=== PATIENT | female | born 1960 | race Caucasian/White ===

== ENCOUNTER 2017-05-04 20:07 | Emergency (ER) | payer BC ==
[~2017-05-04] VITALS: Ht 165.1 cm; Wt 67.6 kg
[2017-05-04 20:40] VITALS: BP_SYST 127
[2017-05-04 21:01] LABS: BILIRUBIN,URINE NEGATIVE (NEGATIVE); CLARITY/URINE CLEAR (CLEAR); COLOR,URINE YELLOW (YELLOW); GLUCOSE,URINE NEGATIVE (NEGATIVE); KETONES,URINE NEGATIVE (NEGATIVE); LEUKOCYTE ESTERASE ,URINE NEGATIVE (NEGATIVE); NITRITE, URINE NEGATIVE (NEGATIVE); PH,URINE 6.5 (5.0-8.0); PROTEIN URINE NEGATIVE (NEGATIVE); UROBILINOGEN,URINE 0.2 (0.2-1.0)
[2017-05-04 21:03] LABS: BLOOD, URINE TRACE (NEGATIVE)
[2017-05-04] MEDS ORDERED: NACL 0.9% 1,000 ML IV ONE (21:26)
[2017-05-04 21:30] LABS: BACTERIA,URINE FEW /HPF (None Seen); CALCIUM OXALATE CRYSTALS,UR 3+ /HPF (None Seen); WBC,URINE 0-3 /HPF (0-3)
[2017-05-04] MEDS ORDERED: KETOROLAC TROMETHAMINE 30 MG VIAL IVP ONE (21:30)
[2017-05-04 22:41] LABS: BASOPHILS % (AUTO) 0.3 % (0.0-2.0); EOSINOPHILS % (AUTO) 1.1 % (0.0-4.0); HEMOGLOBIN 12.7 g/dL (12.0-16.0); LYMPHOCYTES # (AUTO) 1.2 K/uL (1.0-5.5); LYMPHOCYTES % (AUTO) 26.7 % (20.5-51.5); MEAN CORPUSCULAR HEMOGLOBIN 30 pg (27-31); MEAN CORPUSCULAR HGB CONC 33 % (32-36); MEAN CORPUSCULAR VOLUME 91 fL (79.0-98.0); MONOCYTES # (AUTO) 0.3 K/uL (0.0-1.0); MONOCYTES % (AUTO) 6.3 % (1.7-9.3); NEUTROPHILS # (AUTO) 2.9 K/uL (1.8-7.7); NEUTROPHILS % (AUTO) 65.6 % (40.0-70.0); PLATELET COUNT (AUTO) 261 K/uL (130-430); RED BLOOD CELL COUNT(AUTO) 4.28 MIL/uL (4.2-6.2); RED CELL DISTRIBUTION WIDTH 13.2 % (9.0-15.0); WHITE BLOOD COUNT (AUTO) 4.4 K/uL (4.8-10.8)
[2017-05-04 22:45] LABS: CALCIUM 8.2 mg/dL (8.4-11.0)
[2017-05-04] MEDS ORDERED: MORPHINE 4 MG/ML INJ. SYRINGE IVP ONE (22:45)
[2017-05-04 22:46] LABS: CREATININE 0.4 mg/dL (0.55-1.30)
[2017-05-04 22:50] LABS: ALBUMIN 3.6 g/dL (3.4-4.8); TOTAL BILIRUBIN 0.3 mg/dL (0.0-1.0)
[2017-05-04 23:22] VITALS: BP_SYST 129
== END 2017-05-04 23:02 | disposition home or self-care (01) ==
LOC: SED 20:07
DX: R10.32 Left lower quadrant pain (principal); R35.0 Frequency of micturition; Z90.49 Acquired absence of other specified parts of digestive tract; Z98.84 Bariatric surgery status
CPT/HCPCS: 36415; 74176; 80053; 81000; 83690; 85025; 96361; 96374; 96375; 99285; J1885; J2270; J7030

== ENCOUNTER 2017-05-30 16:54 | Emergency (ER) | payer BC ==
[~2017-05-30] VITALS: Ht 165.1 cm; Wt 67.1 kg
[2017-05-30 17:01] VITALS: BP_SYST 115
--- NOTE | 2017-05-30 17:04 | NUR ---
Patient triaged and placed in waiting room. VSS and patient appears in no acute distress at this time. Accompanied by self, awaiting available bed, and MD notified of need for MSE.
--- NOTE | 2017-05-30 17:51 | NUR ---
Patient to ER Hallway [facility] to [facility] for evaluation. Side rails up. Report given to LUCIANO Regalado.
--- NOTE | 2017-05-30 17:55 | NUR ---
Pt brought by self , A&Ox4, pt c/o R wrist pain 01/26, pt fell this morning on toy landing on right wrist and right back .no deformities noted,skin pink and warm, cap refill <3.
[2017-05-30] MEDS ORDERED: HYDROcodone/ACETAMIN 7.5-325 MG TAB PO ONE (18:00)
--- NOTE | 2017-05-30 18:00 | NUR ---
Harleen Joel [employer] G[employer]MENT ASSEMBLER at bedside examining patient
[2017-05-30 18:42] VITALS: BP_SYST 115
--- NOTE | 2017-05-30 18:42 | NUR ---
Patient given written and verbal discharge instructions and verbalizes understanding. ER MD discussed with patient the results and treatment provided. Patient in stable condition. ID arm band removed. Rx of Tramadol, Mobic given. Patient educated on pain management and to follow up with PMD. Pain Scale 3/10 tolerable for pt. Opportunity for questions provided and answered.
== END 2017-05-30 18:42 | disposition home or self-care (01) ==
LOC: SED 16:54
DX: S63.501A Unspecified sprain of right wrist, initial encounter (principal); S39.012A Strain of muscle, fascia and tendon of lower back, initial encounter; Z90.49 Acquired absence of other specified parts of digestive tract; W18.09XA Striking against other object with subsequent fall, initial encounter; Y93.89 Activity, other specified; Y92.89 Other specified places as the place of occurrence of the external cause; Y99.8 Other external cause status
CPT/HCPCS: 99284

== ENCOUNTER 2017-06-12 18:45 | Emergency (ER) | payer BC ==
[~2017-06-12] VITALS: Ht 165.1 cm; Wt 67.1 kg
[2017-06-12 18:55] VITALS: BP_SYST 128
--- NOTE | 2017-06-12 21:00 | NUR ---
Placed in room 07 . Placed on ekg monitor, blood pressure machine and pulse oximeter. To gown for exam. Side rails up. Report given to RN.
--- NOTE | 2017-06-12 21:10 | NUR ---
Patient AAO x4, sitting in bed, c/o right upper quadrant abd pain shooting 8/10 x 2 days, patient not tachycardic, afebrile, and able to speak in full sentences without stopping. No acute distress noted. Will continue to monitor.
--- NOTE | 2017-06-12 21:15 | NUR ---
ER at bedside examining patient.
[2017-06-12] MEDS ORDERED: MORPHINE 2 MG/ML INJ. SYRINGE IVP ONE (21:30)
--- NOTE | 2017-06-12 21:36 | NUR ---
# 18 gauge angiocath placed to R AC. Use of asceptic technique. Opsite placed over site. Blood return noted. Two patient identifiers used. Blood for lab drawn from site. Flushed with 10 cc of normal saline. No evidence of infiltration noted. Patient tolerated well.
--- NOTE | 2017-06-12 21:40 | NUR ---
Patient to CT via wheelchair.
[2017-06-12 21:53] LABS: BASOPHILS % (AUTO) 0.2 % (0.0-2.0); EOSINOPHILS % (AUTO) 0.7 % (0.0-4.0); HEMATOCRIT 39.2 % (36-48); HEMOGLOBIN 12.4 g/dL (12.0-16.0); LYMPHOCYTES # (AUTO) 1.2 K/uL (1.0-5.5); LYMPHOCYTES % (AUTO) 21.5 % (20.5-51.5); MEAN CORPUSCULAR HEMOGLOBIN 29 pg (27-31); MEAN CORPUSCULAR HGB CONC 32 % (32-36); MEAN CORPUSCULAR VOLUME 90 fL (79.0-98.0); MONOCYTES # (AUTO) 0.4 K/uL (0.0-1.0); MONOCYTES % (AUTO) 6.4 % (1.7-9.3); NEUTROPHILS # (AUTO) 4.2 K/uL (1.8-7.7); NEUTROPHILS % (AUTO) 71.2 % (40.0-70.0); PLATELET COUNT (AUTO) 301 K/uL (130-430); RED BLOOD CELL COUNT(AUTO) 4.34 MIL/uL (4.2-6.2); RED CELL DISTRIBUTION WIDTH 13.3 % (9.0-15.0); WHITE BLOOD COUNT (AUTO) 5.8 K/uL (4.8-10.8)
--- NOTE | 2017-06-12 22:00 | NUR ---
Patient returned from CT.
[2017-06-12 22:26] LABS: ANION GAP 7 (5-15); CALCIUM 8.8 mg/dL (8.4-11.0); CHLORIDE 107 mmol/L (98-107); CREATININE 0.43 mg/dL (0.55-1.30); GLUCOSE 99 mg/dL (70-99); POTASSIUM 3.9 mmol/L (3.5-5.1); SODIUM SERUM 142 mmol/L (136-145); UREA NITROGEN, BLOOD 12 mg/dL (8-21)
[2017-06-12 22:30] LABS: INR 0.9 (0.8-1.2); PROTHROMBIN TIME 9.3 SECS (9.5-12.5)
[2017-06-12 22:33] LABS: GFR AFRICAN AMERICAN 195 mL/min (>90)
[2017-06-12 22:34] LABS: ALANINE AMINOTRANSFERASE 14 U/L (12-78); ALBUMIN 3.5 g/dL (3.4-4.8); ASPARTATE AMINOTRANSFERASE 8 U/L (10-37); LIPASE 218 U/L (73-393); TOTAL BILIRUBIN 0.4 mg/dL (0.0-1.0)
--- NOTE | 2017-06-12 23:00 | NUR ---
Patient resting in bed, no acute distress noted. Vital signs stable.
[2017-06-12 23:25] VITALS: BP_SYST 114
--- NOTE | 2017-06-12 23:25 | NUR ---
Patient given written and verbal discharge instructions and verbalizes understanding. ER MD discussed with patient the results and treatment provided. Patient in stable condition. ID arm band removed. IV catheter removed intact and dressing applied, no active bleeding. Rx of ibuprofen and colace given. Patient educated on pain management and to follow up with PMD. Pain Scale 0/10 . Opportunity for questions provided and answered.
== END 2017-06-12 23:25 | disposition home or self-care (01) ==
LOC: SED 18:45
DX: R10.13 Epigastric pain (principal); R11.0 Nausea; R63.0 Anorexia; Z90.49 Acquired absence of other specified parts of digestive tract; Z98.84 Bariatric surgery status
CPT/HCPCS: 36415; 74176; 80053; 83690; 83880; 84484; 85025; 85610; 85730; 96365; 99285; J2270

== ENCOUNTER 2017-09-15 08:14 | Emergency (ER) | payer BC ==
[~2017-09-15] VITALS: Ht 165.1 cm; Wt 72.1 kg
[2017-09-15 08:14] VITALS: BP_SYST 126
[2017-09-15] MEDS ORDERED: ONDANSETRON 4 MG ODT TAB PO ONE (08:30)
[2017-09-15] MEDS ORDERED: IBUPROFEN 800 MG TABLET PO ONE (08:30)
[2017-09-15] MEDS ORDERED: HYDROcodone/ACETAMIN 10-325 MG TAB PO ONE (08:45)
[2017-09-15 08:51] LABS: BASOPHILS % (AUTO) 0.6 % (0.0-2.0); EOSINOPHILS # (AUTO) 0.1 K/uL (0.0-0.4); EOSINOPHILS % (AUTO) 1.8 % (0.0-4.0); HEMATOCRIT 36.4 % (36-48); HEMOGLOBIN 11.7 g/dL (12.0-16.0); LYMPHOCYTES # (AUTO) 1.1 K/uL (1.0-5.5); LYMPHOCYTES % (AUTO) 25.2 % (20.5-51.5); MEAN CORPUSCULAR HEMOGLOBIN 28 pg (27-31); MEAN CORPUSCULAR HGB CONC 32 % (32-36); MEAN CORPUSCULAR VOLUME 85 fL (79.0-98.0); MONOCYTES # (AUTO) 0.3 K/uL (0.0-1.0); MONOCYTES % (AUTO) 7.9 % (1.7-9.3); NEUTROPHILS # (AUTO) 2.8 K/uL (1.8-7.7); NEUTROPHILS % (AUTO) 64.5 % (40.0-70.0); PLATELET COUNT (AUTO) 280 K/uL (130-430); RED BLOOD CELL COUNT(AUTO) 4.26 MIL/uL (4.2-6.2); RED CELL DISTRIBUTION WIDTH 12.9 % (9.0-15.0); WHITE BLOOD COUNT (AUTO) 4.3 K/uL (4.8-10.8)
[2017-09-15 09:08] LABS: CALCIUM 8.8 mg/dL (8.4-11.0); CREATININE 0.44 mg/dL (0.55-1.30); POTASSIUM 3.5 mmol/L (3.5-5.1)
[2017-09-15 09:13] LABS: ALBUMIN 3.4 g/dL (3.4-4.8); PROTHROMBIN TIME 9.8 SECS (9.5-12.5); TOTAL BILIRUBIN 0.3 mg/dL (0.0-1.0)
[2017-09-15 09:15] LABS: BILIRUBIN,URINE NEGATIVE (NEGATIVE); CLARITY/URINE CLEAR (CLEAR); COLOR,URINE YELLOW (YELLOW); GLUCOSE,URINE NEGATIVE (NEGATIVE); KETONES,URINE NEGATIVE (NEGATIVE); LEUKOCYTE ESTERASE ,URINE NEGATIVE (NEGATIVE); NITRITE, URINE NEGATIVE (NEGATIVE); PH,URINE 6.5 (5.0-8.0); PROTEIN URINE NEGATIVE (NEGATIVE); UROBILINOGEN,URINE 0.2 (0.2-1.0)
[2017-09-15 09:36] LABS: BLOOD, URINE TRACE (NEGATIVE)
[2017-09-15 10:30] LABS: BACTERIA,URINE FEW /HPF (None Seen); MUCUS,URINE None Seen /LPF (None Seen); RBC,URINE 0-3 /HPF (0-3); WBC,URINE 0-3 /HPF (0-3)
[2017-09-15] MEDS ORDERED: MORPHINE SULFATE 10 MG/ML VIAL IM ONE (11:00)
[2017-09-15 11:25] VITALS: BP_SYST 122
== END 2017-09-15 11:25 | disposition home or self-care (01) ==
LOC: SED 08:14
DX: R10.13 Epigastric pain (principal); R11.0 Nausea; Z86.2 Personal history of diseases of the blood and blood-forming organs and certain disorders involving the immune mechanism
CPT/HCPCS: 36415; 74176; 80053; 81000; 82150; 83690; 84703; 85025; 85610; 85730; 96372; 99285; J2270; Q0162

== ENCOUNTER 2018-01-06 21:58 | Emergency (ER) | payer BC, OTHER ==
[~2018-01-06] VITALS: Ht 165.1 cm; Wt 73.5 kg
[2018-01-06 22:05] VITALS: BP_SYST 110
[2018-01-06] MEDS ORDERED: NACL 0.9% 1,000 ML IV ONE (22:14)
[2018-01-06] MEDS ORDERED: ONDANSETRON HCL 4 MG/2 ML VIAL IVP ONE (22:15)
[2018-01-06] MEDS ORDERED: MORPHINE 2 MG/ML INJ. SYRINGE IM ONE (22:15)
[2018-01-06] MEDS ORDERED: KETOROLAC TROMETHAMINE 30 MG VIAL IVP ONE (22:15)
[2018-01-06 22:26] LABS: BILIRUBIN,URINE 1+ (NEGATIVE); BLOOD, URINE NEGATIVE (NEGATIVE); CLARITY/URINE SL CLOUDY (CLEAR); COLOR,URINE YELLOW (YELLOW); GLUCOSE,URINE NEGATIVE (NEGATIVE); KETONES,URINE 1+ (NEGATIVE); LEUKOCYTE ESTERASE ,URINE TRACE (NEGATIVE); NITRITE, URINE NEGATIVE (NEGATIVE); PROTEIN URINE TRACE (NEGATIVE)
[2018-01-06 22:51] LABS: BASOPHILS % (AUTO) 0.6 % (0.0-2.0); EOSINOPHILS # (AUTO) 0.3 K/uL (0.0-0.4); EOSINOPHILS % (AUTO) 6.4 % (0.0-4.0); HEMATOCRIT 33.7 % (36-48); HEMOGLOBIN 10.6 g/dL (12.0-16.0); LYMPHOCYTES # (AUTO) 1.6 K/uL (1.0-5.5); LYMPHOCYTES % (AUTO) 37.3 % (20.5-51.5); MEAN CORPUSCULAR HEMOGLOBIN 26 pg (27-31); MEAN CORPUSCULAR HGB CONC 32 % (32-36); MEAN CORPUSCULAR VOLUME 82 fL (79.0-98.0); MONOCYTES # (AUTO) 0.5 K/uL (0.0-1.0); MONOCYTES % (AUTO) 12.5 % (1.7-9.3); NEUTROPHILS # (AUTO) 1.8 K/uL (1.8-7.7); NEUTROPHILS % (AUTO) 43.2 % (40.0-70.0); PLATELET COUNT (AUTO) 299 K/uL (130-430); RED BLOOD CELL COUNT(AUTO) 4.09 MIL/uL (4.2-6.2); RED CELL DISTRIBUTION WIDTH 16.5 % (9.0-15.0); WHITE BLOOD COUNT (AUTO) 4.2 K/uL (4.8-10.8)
[2018-01-06 22:57] LABS: BACTERIA,URINE FEW /HPF (None Seen); RBC,URINE 0-3 /HPF (0-3)
[2018-01-06 22:58] LABS: CALCIUM OXALATE CRYSTALS,UR 0-10 /HPF (None Seen)
[2018-01-06 23:23] LABS: CALCIUM 8.9 mg/dL (8.4-11.0); CREATININE 0.63 mg/dL (0.55-1.30); POTASSIUM 3.5 mmol/L (3.5-5.1)
[2018-01-06 23:27] LABS: ALBUMIN 3.5 g/dL (3.4-4.8); TOTAL BILIRUBIN 0.3 mg/dL (0.0-1.0)
[2018-01-06 23:35] VITALS: BP_SYST 116
== END 2018-01-06 23:35 | disposition home or self-care (01) ==
LOC: SED 21:58
DX: N20.0 Calculus of kidney (principal); N39.0 Urinary tract infection, site not specified; R19.7 Diarrhea, unspecified; R11.10 Vomiting, unspecified; Z86.2 Personal history of diseases of the blood and blood-forming organs and certain disorders involving the immune mechanism; Z90.49 Acquired absence of other specified parts of digestive tract; Z98.84 Bariatric surgery status
CPT/HCPCS: 36415; 74176; 80053; 81000; 83690; 85025; 87086; 96361; 96374; 96375; 99285; J1885; J2270; J2405; J7030

== ENCOUNTER 2018-11-19 18:24 | Emergency (ER) | payer OTHER ==
[~2018-11-19] VITALS: Ht 165.1 cm; Wt 72.1 kg
[2018-11-19 18:39] VITALS: BP_SYST 119
--- NOTE | 2018-11-19 18:43 | NUR ---
Patient triaged and placed in waiting room. VSS and patient appears in no acute distress at this time. Accompanied by self, awaiting available bed, and MD notified of need for MSE.
--- NOTE | 2018-11-19 19:32 | NUR ---
1931 - Patient to ER bed 3 to [facility] for evaluation. Side rails up. Report given to LUCIANO Joyce.
--- NOTE | 2018-11-19 19:32 | NUR ---
Note mira in EDM - 11/19/18 at 1932 by [email or web address] Patient to ER bed 3 to [facility] for evaluation. Side rails up. Report given to LUCIANO Joyce
--- NOTE | 2018-11-19 19:42 | NUR ---
Pt complains of right side abdominal pain for the past two weeks, on and off. Pt states she feel nauseous but has not vomited. The other day patient states she had a fever of 103.5 and would fluctuate from 101 to 103.5, the next day she was afebrile. Pt denies diarrhea, constipation, burning/pain upon urination. No other injuries/complaints per patient or noted.
--- NOTE | 2018-11-19 20:09 | NUR ---
ER Dr. Stewart at bedside examining patient.
[2018-11-19] MEDS ORDERED: NACL 0.9% 1,000 ML IV ONE (20:12)
[2018-11-19] MEDS ORDERED: ONDANSETRON HCL 4 MG/2 ML VIAL IVP ONE (20:15)
[2018-11-19] MEDS ORDERED: MORPHINE 4 MG/ML INJ. SYRINGE IVP ONE (20:15)
[2018-11-19] MEDS ORDERED: DIPHENHYDRAMINE INJ 50 MG/ML VIAL IVP ONE (20:15)
--- NOTE | 2018-11-19 20:41 | NUR ---
medications were given, pt tolerated well. No adverse reaction, will continue to monitor.
[2018-11-19 20:43] LABS: BASOPHILS % (AUTO) 0.7 % (0.0-2.0); EOSINOPHILS % (AUTO) 0.4 % (0.0-4.0); HEMATOCRIT 30.1 % (36-48); LYMPHOCYTES % (AUTO) 22.9 % (20.5-51.5); MEAN CORPUSCULAR HEMOGLOBIN 20 pg (27-31); MEAN CORPUSCULAR HGB CONC 30 % (32-36); MEAN CORPUSCULAR VOLUME 69 fL (79.0-98.0); MONOCYTES # (AUTO) 0.4 K/uL (0.0-1.0); MONOCYTES % (AUTO) 9.4 % (1.7-9.3); NEUTROPHILS # (AUTO) 2.8 K/uL (1.8-7.7); NEUTROPHILS % (AUTO) 66.6 % (40.0-70.0); PLATELET COUNT (AUTO) 353 K/uL (130-430); RED BLOOD CELL COUNT(AUTO) 4.39 MIL/uL (4.2-6.2); RED CELL DISTRIBUTION WIDTH 18.7 % (9.0-15.0); WHITE BLOOD COUNT (AUTO) 4.2 K/uL (4.8-10.8)
--- NOTE | 2018-11-19 20:44 | NUR ---
Pt went to radiology in stable condition.
[2018-11-19 20:46] LABS: BILIRUBIN,URINE NEGATIVE (NEGATIVE); BLOOD, URINE NEGATIVE (NEGATIVE); CLARITY/URINE CLEAR (CLEAR); COLOR,URINE YELLOW (YELLOW); GLUCOSE,URINE NEGATIVE (NEGATIVE); KETONES,URINE NEGATIVE (NEGATIVE); LEUKOCYTE ESTERASE ,URINE NEGATIVE (NEGATIVE); NITRITE, URINE NEGATIVE (NEGATIVE); PROTEIN URINE NEGATIVE (NEGATIVE); UROBILINOGEN,URINE 0.2 (0.2-1.0)
--- NOTE | 2018-11-19 20:50 | NUR ---
Pt returned from radiology in stable condition.
[2018-11-19 20:53] LABS: CREATININE 0.59 mg/dL (0.55-1.30); POTASSIUM 3.8 mmol/L (3.5-5.1)
[2018-11-19 20:58] LABS: ALBUMIN 3.6 g/dL (3.4-4.8); TOTAL BILIRUBIN 0.4 mg/dL (0.0-1.0)
[2018-11-19 22:05] VITALS: BP_SYST 115
--- NOTE | 2018-11-19 22:05 | NUR ---
Patient given written and verbal discharge instructions and verbalizes understanding. ER MD discussed with patient the results and treatment provided. Patient in stable condition. ID arm band removed. IV catheter removed intact and dressing applied, no active bleeding. Rx of Tramadol given. Patient educated on pain management and to follow up with PMD. Pain Scale 0. Opportunity for questions provided and answered. Medication side effect fact sheet provided.
== END 2018-11-19 22:05 | disposition home or self-care (01) ==
LOC: SED 18:24
DX: D64.9 Anemia, unspecified (principal); R10.31 Right lower quadrant pain; Z90.49 Acquired absence of other specified parts of digestive tract; Z90.710 Acquired absence of both cervix and uterus; Z98.84 Bariatric surgery status
CPT/HCPCS: 36415; 74176; 80053; 81000; 81003; 85025; 96374; 96375; 99284; J1200; J2270; J2405; J7030

== ENCOUNTER 2019-09-13 13:23 | Emergency (ER) | payer OTHER ==
[~2019-09-13] VITALS: Ht 165.1 cm; Wt 74.8 kg
[2019-09-13 13:36] VITALS: BP_SYST 134
[2019-09-13 14:10] LABS: BASOPHILS % (AUTO) 0.4 % (0.0-2.0); EOSINOPHILS # (AUTO) 0.1 K/uL (0.0-0.4); EOSINOPHILS % (AUTO) 1.4 % (0.0-4.0); HEMOGLOBIN 11.3 g/dL (12.0-16.0); LYMPHOCYTES % (AUTO) 24.5 % (20.5-51.5); MEAN CORPUSCULAR HEMOGLOBIN 28 pg (27-31); MEAN CORPUSCULAR HGB CONC 32 % (32-36); MEAN CORPUSCULAR VOLUME 86 fL (79.0-98.0); MONOCYTES # (AUTO) 0.3 K/uL (0.0-1.0); MONOCYTES % (AUTO) 7.5 % (1.7-9.3); NEUTROPHILS # (AUTO) 2.6 K/uL (1.8-7.7); NEUTROPHILS % (AUTO) 66.2 % (40.0-70.0); PLATELET COUNT (AUTO) 308 K/uL (130-430); RED BLOOD CELL COUNT(AUTO) 4.05 MIL/uL (4.2-6.2); RED CELL DISTRIBUTION WIDTH 27.4 % (9.0-15.0)
[2019-09-13 14:41] LABS: CALCIUM 8.9 mg/dL (8.4-11.0); CREATININE 0.64 mg/dL (0.55-1.30); POTASSIUM 4.2 mmol/L (3.5-5.1)
[2019-09-13 14:46] LABS: ALBUMIN 3.2 g/dL (3.4-4.8); INR 0.9 (0.8-1.2); PROTHROMBIN TIME 9.2 SECS (9.5-12.5); TOTAL BILIRUBIN 0.3 mg/dL (0.0-1.0)
[2019-09-13] MEDS ORDERED: IBUPROFEN 800 MG TABLET PO ONE (15:00)
[2019-09-13 16:32] VITALS: BP_SYST 132
== END 2019-09-13 16:32 | disposition home or self-care (01) ==
LOC: SED 13:23
DX: J32.9 Chronic sinusitis, unspecified (principal); R03.0 Elevated blood-pressure reading, without diagnosis of hypertension
CPT/HCPCS: 36415; 70450-TC; 70486-TC; 80053; 85025; 85610-TC; 85730-TC; 99285

== ENCOUNTER 2020-10-25 11:09 | Emergency (ER) | payer OTHER ==
[~2020-10-25] VITALS: Ht 165.1 cm; Wt 81.6 kg
--- NOTE | 2020-10-25 11:14 | NUR ---
Patient to ER bed 3 to gown for evaluation. Side rails up. Report given to Mandi WOLF.
--- NOTE | 2020-10-25 11:15 | NUR ---
ER at bedside examining patient.
[2020-10-25 11:17] VITALS: BP_SYST 133
--- NOTE | 2020-10-25 11:21 | NUR ---
Pt. brought in by , placed in bed 3, has c/o pain to right foot 8/10 on pain scale and right shoulder 6/10 on pain scale, post fall 1 1/2 week ago. no swelling or bruising noted on assessment. cause of fall was pt tripped over her dog. pt. appears to be comfortable
--- NOTE | 2020-10-25 11:28 | NUR ---
radiology here for xray
--- NOTE | 2020-10-25 11:50 | NUR ---
Dr. Holloway reviewed results of xray with pt. and placed jamel bandage to Right foot
[2020-10-25] MEDS ORDERED: NAPR-690 PO (11:53)
[2020-10-25 12:05] VITALS: BP_SYST 133
--- NOTE | 2020-10-25 12:06 | NUR ---
Patient given written and verbal discharge instructions and verbalizes understanding. Dr. Holloway discussed with patient the results and treatment provided. Patient in stable condition. ID arm band removed. Rx of given. Patient educated on pain management and to follow up with PMD. Pain Scale 3. Opportunity for questions provided and answered. Medication side effect fact sheet provided.
== END 2020-10-25 12:05 | disposition home or self-care (01) ==
LOC: SED 11:09
DX: S43.401A Unspecified sprain of right shoulder joint, initial encounter (principal); S93.601A Unspecified sprain of right foot, initial encounter; W18.39XA Other fall on same level, initial encounter; Y93.89 Activity, other specified; Y92.89 Other specified places as the place of occurrence of the external cause; Y99.8 Other external cause status
CPT/HCPCS: 73030; 99284